=== PATIENT | female | born 1985 | race Caucasian/White ===

== ENCOUNTER 2016-10-18 05:55 | Inpatient (IN) | payer OTHER ==
[2016-10-18 07:07] LABS: RED BLOOD COUNT 3.93 M/UL (4.00-5.10); WHITE BLOOD COUNT 10.4 K/UL (4.5-11.0)
== END 2016-10-20 13:40 | disposition home or self-care (01) | DRG 775 ==
LOC: GENOP 05:55 → OB 07:42
PROVIDERS: Obstetrics & Gynecology; ADMIT Obstetrics & Gynecology
PROC: 10E0XZZ Delivery of Products of Conception, External Approach (ICD-10-PCS; principal; 2016-10-18)
PROC: 3E0234Z Introduction of Serum, Toxoid and Vaccine into Muscle, Percutaneous Approach (ICD-10-PCS; 2016-10-20)
DX: O42.913 Preterm premature rupture of membranes, unspecified as to length of time between rupture and onset of labor, third trimester (principal); O99.323 Drug use complicating pregnancy, third trimester; Z3A.35 35 weeks gestation of pregnancy; Z23 Encounter for immunization; Z37.0 Single live birth; F11.90 Opioid use, unspecified, uncomplicated
CPT/HCPCS: 36415; 51702; 80307; 81001; 82800; 85014; 85018; 85025; 86762; 86780; 86850; 86900; 86901; 87086; 87340; 87390; 90715; J2210; J2590; J2795; J3010; Q0163